=== PATIENT | female | born 1995 | race African-American/Black ===

== ENCOUNTER 2019-10-15 23:37 | Emergency (ER) | payer BC, MEDICAID ==
[~2019-10-15] VITALS: Ht 170.2 cm; Wt 73.9 kg
[~2019-10-15 23:37] MED LIST: CIPRO500 MG PO; DIFLUCAN150 MG PO; IBUPROFEN400 MG ORAL; LIDOCAINE VISCO20 ML PO; NKM; ZYRTEC-D TABLE1 EACH ORAL
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
[2019-10-16] MEDS ORDERED: Tetanus/Diptheria/Pertussis IM ONE (00:15)
--- NOTE | 2019-10-16 01:01 | Diagnostic Imaging Report ---
EXAM: CT Head Without Intravenous Contrast CLINICAL HISTORY: TRAUMA TECHNIQUE: Axial computed tomography images of the head/brain without intravenous contrast. CTDI is 53 mGy and DLP is 1206 mGy-cm. One or more of the following dose reduction techniques were used: automated exposure control, adjustment of the mA and/or kV according to patient size, use of iterative reconstruction technique. COMPARISON: No relevant prior studies available. FINDINGS: Brain: No hemorrhage or mass effect. Ventricles: No hydrocephalus. Bones/joints: Unremarkable. Soft tissues: Right frontal scalp soft tissue swelling.. Sinuses: Unremarkable. Mastoid air cells: Clear. IMPRESSION: No acute hemorrhage, hydrocephalus, or mass effect.
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
[2019-10-16] MEDS ORDERED: Neosporin Oint Ud Pkt TOPIC ONE (01:15)
[2019-10-16 01:20] VITALS: BP 126/77
[2019-10-16 01:25] VITALS: BP 132/81
--- NOTE | 2019-10-16 01:25 | NUR ---
ER DISCHARGE NOTE: Patient is cleared to be discharged per ERMD, pt is aox4, on room air, with stable vital signs. pt was given dc and prescription instructions, pt was able to verbalize understanding, pt id band removed without complications. pt is able to ambulate with steady gait. pt took all belongings.
== END 2019-10-16 01:25 | disposition home or self-care (01) ==
LOC: EMR 23:49
DX: S01.81XA Laceration without foreign body of other part of head, initial encounter (principal); S09.90XA Unspecified injury of head, initial encounter; Y04.2XXA Assault by strike against or bumped into by another person, initial encounter; Y93.9 Activity, unspecified; Y92.9 Unspecified place or not applicable
CPT/HCPCS: 12011; 70450; 70486; 90471; 90715; Z7502; 99284

== ENCOUNTER 2019-10-20 21:04 | Emergency (ER) | payer MEDICAID ==
[~2019-10-20] VITALS: Ht 170.2 cm; Wt 63.5 kg
[2019-10-20 21:29] VITALS: BP 126/69
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
[2019-10-20 21:58] VITALS: BP 126/69
--- NOTE | 2019-10-20 21:59 | NUR ---
ED Nurse Note: Pt cleared by health care Provider for discharge. DC instructions/prescription was given and explained to pt and verbalized understanding of teachings. All medical deviecs such as ID band removed. Pt is AAO x4, ambulatory and left with all personal belongings.
== END 2019-10-20 21:58 | disposition home or self-care (01) ==
LOC: EMR 21:40
DX: Z48.02 Encounter for removal of sutures (principal)
CPT/HCPCS: 99281

== ENCOUNTER 2020-01-17 18:57 | Emergency (ER) | payer MEDICAID ==
[~2020-01-17] VITALS: Ht 170.2 cm; Wt 72.6 kg
[2020-01-17 19:15] VITALS: BP 122/81
[2020-01-17] MEDS ORDERED: HYDROcodone/Acetamin 5/325 tab ORAL ONE (19:15)
[2020-01-17] MEDS ORDERED: Bacitracin Oint UD TOPIC ONE (19:15)
[2020-01-17] MEDS ORDERED: Lidocaine 1% MPF 10mg/ml 5ml IM ONE (19:15)
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
[2020-01-17] MEDS ORDERED: ACETAMINOPHEN-1 EAC1 ORAL (19:27)
[2020-01-17] MEDS ORDERED: AUGMENTIN 875-1 EAC1 ORAL (19:27)
[2020-01-17 20:10] VITALS: BP 119/76
== END 2020-01-17 20:10 | disposition home or self-care (01) ==
LOC: EMR 19:40
DX: S61.305A Unspecified open wound of left ring finger with damage to nail, initial encounter (principal); Y04.8XXA Assault by other bodily force, initial encounter; Y93.9 Activity, unspecified; Y92.9 Unspecified place or not applicable
CPT/HCPCS: 11730; Z7502; 99283